=== PATIENT | male | born 1935 | race Caucasian/White ===

== ENCOUNTER 2017-12-28 08:51 | Emergency (ER) | payer OTHER ==
[~2017-12-28] VITALS: Ht 167.6 cm; Wt 67.1 kg
[2017-12-28 09:11] VITALS: BP 128/69; Ht 167.6 cm; Wt 67.1 kg
== END 2017-12-28 10:24 | disposition home or self-care (01) ==
LOC: ED 08:51
DX: S61.412A Laceration without foreign body of left hand, initial encounter (principal); Z95.5 Presence of coronary angioplasty implant and graft; W26.8XXA Contact with other sharp object(s), not elsewhere classified, initial encounter; Y93.89 Activity, other specified; Y92.89 Other specified places as the place of occurrence of the external cause; Y99.8 Other external cause status
CPT/HCPCS: J2001